=== PATIENT | female | born 1960 | race Caucasian/White ===

== ENCOUNTER 2021-06-03 08:50 | Emergency (ER) | payer OTHER, SELFPAY ==
[2021-06-03 08:51] VITALS: BP 130/84; PULSE 71; RESP 16; TEMP 36.2; O2SAT 99; BMI 32.4
--- NOTE | 2021-06-03 09:26 | EKG12_ITS ---
Test Reason : CP Blood Pressure : / mmHG Vent. Rate : 073 BPM Atrial Rate : 073 BPM P-R Int : 154 ms QRS Dur : 082 ms QT Int : 388 ms P-R-T Axes : 067 068 064 degrees QTc Int : 427 ms Sinus rhythm with occasional Premature ventricular complexes Otherwise normal ECG When compared with ECG of 22-JUL-2009 08:53, Premature ventricular complexes are now Present Confirmed by LAYLA DIETZ, JUDY ([id number]), scientific publications editor JOHN WARREN ([id number]) on 06/05/2021 12:56:18 P M Referred By: Confirmed By:MICHAEL RICH MD
--- NOTE | 2021-06-03 09:28 | EDS_ITS ---
HPI History of Present Illness Chief Complaint: Chest Pain Informant: patient Narrative Narrative: Patient is a 60-year-old female that denies any past medical history presenting with chest pain. Patient states she developed chest tightness and palpitations on Wednesday, 3 days ago. She states she has tightness has been constant since. She states that afternoon she felt very tired and she felt that her heart was beating harder and faster than normal. She had to lay down. She notes her discomfort in her chest is worse when she rolls over. She has taken aspirin the past 2 days with no relief of her symptoms. She has a history of heart disease on both sides of her family. She denies any leg swelling. She denies any history of DVT or PE. She does intermittently she wakes up sweating but thinks it might be from her blankets. She has had more stress lately as her mother is currently in the ICU at [place] and she received other bad news on Wednesday which she did not go into detail with me about. She denies any nausea, vomiting, change in bowel habits or blood in her stool. She denies any urinary symptoms. She never had an echocardiogram or stress test. She does not see a doctor regularly. No other complaints at this time. [facility] Medical History Delivery of by section Medical History no medical history Allergy/AdvReac Type Severity Reaction Status Date / Time nickel AdvReac Rash Verified 06/03/21 08:50 Surgical History Status post breast reduction Social History Smoking Status: Current every day smoker tobacco type: cigarettes ROS ROS ED Constitutional Constitutional ED: Reports other Details: fatigue ; Denies chills or fever(s) Eyes Eyes: Denies blurry vision or change in vision ENT ENT ED: Denies ear pain or rhinorrhea Cardiovascular Cardiovascular: Reports chest pain and palpitations Respiratory/Chest Respiratory/Chest: Denies cough or dyspnea Gastrointestinal Gastrointestinal: Denies abdominal pain, constipation, diarrhea, melena, nausea or vomiting Genitourinary Genitourinary ED: Denies dysuria or hematuria Musculoskeletal Musculoskeletal: Denies arthralgias or myalgias Integumentary Denies rash Neurologic Neurologic: Denies headache(s) Psychiatric Psychiatric: Reports anxiety; Denies depression, suicidal ideation or suicidal thoughts EXAM Physical Exam Const Vital Signs: 06/03/21 08:51 06/03/21 12:11 06/03/21 13:14 Temperature 97.1 F L Temperature Source Temporal Pulse Rate 71 66 75 Respiratory Rate 16 16 16 Blood Pressure 130/84 H 121/69 H 123/78 H Blood Pressure Mean 99 86 Pulse Ox 99 98 97 Oxygen Delivery Method Room Air Room Air Positive well nourished and well developed General Appearance ED: well developed and NAD HEENT Reports moist mucous membranes normocephalic and atraumatic Eyes PERRL and EOMs intact bilaterally Neck supple Chest Wall inspection of chest normal Resp normal respiratory effort Effort and Inspection: respiratory distress Cardio regular rate, regular rhythm and no murmurs GI normal to inspection, nondistended, normoactive bowel sounds Back/Spine no CVA tenderness Extremity normal to inspection General Extremety ED: Negative for edema or tenderness General Extremity: Negative for edema Neuro oriented x3 Sensorium / Orientation: awake and alert Motor Exam: Negative for general weakness Psych mental status grossly normal Skin no rashes or lesions noted and no wounds Heart Score History: Slightly/Non-Suspicious ECG: Normal Age: >45 - <65 years Risk Factors: 1 or 2 Risk Factors Troponin: </= Normal Limit Score: 2 MDM MDM MDM Narrative Medical decision making narrative: Patient's evaluated for intermittent chest discomfort, palpitations and fatigue. She appears nontoxic in no acute distress. EKG is normal with no ischemic changes. As patient is older than 50 D-dimer is obtained. This is normal. High sensitive troponin is 10 and 8 respectively. I do not think her pain is ACS related. TSH is normal. Lab work-up large unremarkable. Chest x-rays not show an acute process. The exact cause of her pain is not clear however at this time I do think she is stable for outpatient follow-up. She is counseled on signs and symptoms require return to the emergency room. She is encouraged to follow-up with her primary care doctor to schedule outpatient stress testing. Counseled that differential does also include muscle skeletal cause of pain, pleurisy GI and stress. Lab Data Attestation: I reviewed the patient's lab results. Labs: Laboratory Results - last 24 hr 06/03/21 06/03/21 06/03/21 09:53 09:53 09:53 WBC 7.6 RBC 4.33 Hgb 14.3 Hct 42.4 MCV 97.9 MCH 33.0 H MCHC 33.7 RDW Std Deviation 46.3 H RDW Coeff of Eunice 12.7 Plt Count 315 MPV 9.7 Immature Gran % (Auto) 0.400 Neut % (Auto) 70.2 H Lymph % (Auto) 17.1 L [place] % (Auto) 9.7 Eos % (Auto) 1.8 Baso % (Auto) 0.8 Absolute Neuts (auto) 5.4 Absolute Lymphs (auto) 1.30 Nucleated RBC % 0 D-Dimer Quant (PE/DVT) 0.46 Sodium 140 Potassium 4.2 Chloride 106 Carbon Dioxide 32.0 Anion Gap 2 L BUN 16 Creatinine 0.60 Estim Creat Clear Calc 87.18 Est GFR (MDRD) Af Amer 131 Est GFR (MDRD) Non-Af 108 BUN/Creatinine Ratio 26.6 H Glucose 100 Calcium 9.2 Troponin I High Sens TSH 2.80 06/03/21 06/03/21 09:53 12:04 WBC RBC Hgb Hct MCV MCH MCHC RDW Std Deviation RDW Coeff of Eunice Plt Count MPV Immature Gran % (Auto) Neut % (Auto) Lymph % (Auto) [place] % (Auto) Eos % (Auto) Baso % (Auto) Absolute Neuts (auto) Absolute Lymphs (auto) Nucleated RBC % D-Dimer Quant (PE/DVT) Sodium Potassium Chloride Carbon Dioxide Anion Gap BUN Creatinine Estim Creat Clear Calc Est GFR (MDRD) Af Amer Est GFR (MDRD) Non-Af BUN/Creatinine Ratio Glucose Calcium Troponin I High Sens 10 8 TSH Radiography Diagnostic Testing: Clinical Impression(s) from Imaging Studies Chest X-Ray 06/03/21 10:07 IMPRESSION: No acute pulmonary process Electronically Signed: Lyndon Peña MD at 10:19 EDT , Rhythm Strip Rhythm Strip: Sinus Rhythm Rate: 73 Ectopy: PVC(s) EKG Initial EKG: Attestation: I personally reviewed and interpreted this EKG as follows: Interpretation: Sinus Rhythm Comments: Normal sinus rhythm rate of 73 with PVCs Normal axis Normal intervals Normal ST segments Discharge Plan Triage Chief Complaint: Chest Pain ED Provider: Ivania Palacios Dx/Rx/DC Orders Clinical Impression: Chest pain, Fatigue Instructions: ED Chest Pain, Uncertain Cause Primary Care Provider: Rodriguez Galicia Referrals: Rodriguez Galicia MD [Primary Care Provider] - Activity Restrictions/Additional Instructions: Your work-up today was normal. The exact cause of your pain is not clear however I think you are safe to go home. Please follow up with your primary care doctor for further evaluation of this pain. Disposition Disposition: Home, Self Care Discharge Date/Time: 06/03/21 13:16
[2021-06-03 10:05] LABS: Absolute Neutrophil Count 5.4 X10^3/uL (2.0-7.7); Basophil# 0.06 X10^3/uL; Basophil% 0.8 % (0-1); Eosinophil# 0.14 X10^3/uL; Eosinophils% 1.8 % (0-5); Hematocrit 42.4 % (37-47); Hemoglobin 14.3 g/dL (12.0-15.0); Lymphocyte % 17.1 % (19-41); Mean Corp Hgb Conc 33.7 g/dL (32-36); Mean Corpuscular Volume 97.9 fL (81-99); Mean Platelet Vol. 9.7 fl (6.2-12.0); Monocyte# 0.74 X10^3/uL; Monocyte% 9.7 % (0-10); NRBC Flagged by Analyzer 0 % (0-5); Neutrophil # 5.35 X10^3/uL (2.7-7.7); Neutrophil % 70.2 % (47-70); Platelet Count 315 K/mm3 (150-450); RBC Distribution Width CV 12.7 % (11.6-14.6); RBC Distribution Width SD 46.3 fl (35.1-43.9); Red Blood Count 4.33 M/mm3 (4.2-5.4); White Blood Count 7.6 K/mm3 (4.4-11.0)
--- NOTE | 2021-06-03 10:07 | RAD_ITS ---
STUDY: X-RAY CHEST REASON FOR EXAM: Female, 60 years old. Atypical chest pain TECHNIQUE: Single AP portable view of the chest. COMPARISON: None. FINDINGS: EKG leads overlie the chest The lungs are clear and expanded. There is no demonstrated pleural abnormality. Normal size heart. Normal mediastinum and alban. Normal visualized pulmonary arteries. Normal visualized aortic arch and descending thoracic aorta. There are diffuse degenerative changes of the visualized thoracic spine. Normal visualized ribs, clavicles, and shoulders. There is no demonstrated abnormality of the visualized soft tissue structures of the upper abdomen. RAD/Chest 1 View (Portable) IMPRESSION: No acute pulmonary process Electronically Signed: Lyndon Peña MD at 10:19 EDT ,
[2021-06-03 10:13] LABS: D-Dimer Quantitative (DVT/PE) 0.46 FEU/ug/m (0.27-0.49)
[2021-06-03 10:25] LABS: Troponin-I HS (w/2H Reflex) 10 pg/mL (3.0-54.0)
[2021-06-03 10:28] LABS: Anion Gap 2 (5-15); BUN 16 mg/dL (7-18); BUN/Creat Ratio 26.6 RATIO (10-20); Calcium,Total 9.2 mg/dL (8.5-10.1); Chloride 106 mmol/L (98-107); EST Glomerular Filtration Rate 108 mL/min (>60); Est Glom Filt Rate - Afr Amer 131 mL/min (>60); Estimated Creatinine Clearance 87.18 ml/min; Glucose 100 mg/dL (74-106); Potassium 4.2 mmol/L (3.5-5.1); Sodium Level 140 mmol/L (136-145)
[2021-06-03 11:58] LABS: Reflex Troponin-HS? (from REC) Y
[2021-06-03 12:11] VITALS: BP 121/69; PULSE 66; RESP 16; O2SAT 98
[2021-06-03 12:27] LABS: Troponin-I HS 8 pg/mL (3.0-54.0)
[2021-06-03 13:14] VITALS: BP 123/78; PULSE 75; RESP 16; O2SAT 97
== END 2021-06-03 13:16 | disposition home or self-care (01) ==
PROVIDERS: Emergency Provider Emergency Medicine; PCP Internal Medicine; Visit Provider Emergency Medicine
DX: R07.9 Chest pain, unspecified (principal); R53.83 Other fatigue; F17.210 Nicotine dependence, cigarettes, uncomplicated
CPT/HCPCS: 71045; 80048; 84443; 84484; 85025; 85379; 93005; 99284; A4216